=== PATIENT | male | born 1945 | race Caucasian/White ===

== ENCOUNTER 2017-06-03 11:00 | Inpatient (IN) | payer OTHER ==
[~2017-06-03] VITALS: Ht 180.3 cm; Wt 78.5 kg
[2017-06-03] MEDS ORDERED: COZAAR50 MG PO (11:30)
[2017-06-03] MEDS ORDERED: AMLODIPINE BESYL5 MG PO (11:30)
[2017-06-03] MEDS ORDERED: OMEPRAZOLE40 MG PO (11:31)
[2017-06-03] MEDS ORDERED: RANITIDINE PO (11:31)
[2017-06-03] MEDS ORDERED: TEMOVATE15 G1 TP (11:32)
== END 2017-06-10 10:47 | disposition home or self-care (01) | DRG 330 ==
LOC: EDSTATUS 11:00 → ADM 11:00 → SURH 06-05 05:50 → O/R 06-05 05:50 → SURH 06-05 09:00
PROVIDERS: Colon & Rectal Surgery
PROC: 0FB24ZZ Excision of Left Lobe Liver, Percutaneous Endoscopic Approach (ICD-10-PCS; 2017-06-05)
PROC: 07TC4ZZ Resection of Pelvis Lymphatic, Percutaneous Endoscopic Approach (ICD-10-PCS; 2017-06-05)
PROC: 0DBU4ZZ Excision of Omentum, Percutaneous Endoscopic Approach (ICD-10-PCS; 2017-06-05)
PROC: 3E0F7GC Introduction of Other Therapeutic Substance into Respiratory Tract, Via Natural or Artificial Opening (ICD-10-PCS; 2017-06-05)
PROC: 0DTF4ZZ Resection of Right Large Intestine, Percutaneous Endoscopic Approach (ICD-10-PCS; principal; 2017-06-05 09:00)
PROC: 3E0336Z Introduction of Nutritional Substance into Peripheral Vein, Percutaneous Approach (ICD-10-PCS; 2017-06-07)
DX: C18.0 Malignant neoplasm of cecum (principal); C77.5 Secondary and unspecified malignant neoplasm of intrapelvic lymph nodes; I11.9 Hypertensive heart disease without heart failure; D50.0 Iron deficiency anemia secondary to blood loss (chronic); J44.9 Chronic obstructive pulmonary disease, unspecified; J45.998 Other asthma; K76.89 Other specified diseases of liver

== ENCOUNTER 2017-07-31 05:20 | Day surgery (SDC) | payer OTHER ==
[~2017-07-31 05:20] MED LIST: AMLODIPINE BESYL5 MG PO; COZAAR50 MG PO; OMEPRAZOLE40 MG PO; RANITIDINE PO; TEMOVATE15 G1 TP
== END 2017-07-31 13:05 | disposition home or self-care (01) ==
LOC: CIR.AMB 05:20
DX: C18.2 Malignant neoplasm of ascending colon (principal)
CPT/HCPCS: 36561; C1751

== ENCOUNTER 2018-06-13 07:05 | Day surgery (SDC) | payer OTHER | END 2018-06-13 11:55 | disposition home or self-care (01) | LOC: AMB-ENDOS 07:05 | DX: K57.30 Diverticulosis of large intestine without perforation or abscess without bleeding (principal); K64.1 Second degree hemorrhoids ==